=== PATIENT | female | born 1990 | race Two or more races ===

== ENCOUNTER 2024-02-23 09:24 | Emergency (ER) | payer MEDICAID, OTHER ==
[~2024-02-23] VITALS: Ht 162.6 cm; Wt 100.3 kg
[2024-02-23 10:13] LABS: Basophils # (auto) 0 10 ^3/uL (0-0.2); Basophils % (auto) 0.3 % (0.0-2.0); Eosinophils # (auto) 0.1 10 ^3/uL (0-0.8); Eosinophils % (auto) 0.6 % (0.0-7.0); Hematocrit 38.9 % (36.0-46.0); Hemoglobin 13.2 g/dL (12.2-16.2); Lymphocytes # (auto) 1.6 10 ^3/uL (0.4-5.4); Lymphocytes % (auto) 15.8 % (10.0-50.0); Mean Corpuscular Volume 91.2 fL (80.0-100.0); Monocytes % (auto) 9.7 % (0.0-12.0); Neutrophils # (auto) 7.5 10 ^3/uL (1.6-8.6); Neutrophils % (auto) 73.6 % (37.0-80.0); Nucleated Red Blood Cells % 0.1 %; Red Blood Cells 4.27 10^6/uL (4.0-5.20); Red Cell Distribution Width 12.6 % (11.8-14.3); White Blood Cell 10.2 10^3/uL (4.4-10.8)
[2024-02-23 10:32] LABS: Urine Bacteria FEW /hpf (None Seen); Urine Blood 3+ /uL (Negative); Urine Protein, UAD 1+ (Negative); Urine Specific Gravity 1.014 (1.001-1.035); Urine Urobilinogen Normal (Negative); Urine WBC 544 /hpf (0 - 5); Urine WBC Clumps PRESENT /hpf (None Seen)
[2024-02-23 10:34] LABS: Urine Clarity Cloudy (Clear); Urine Color Yellow (Yellow)
[2024-02-23 10:34] LABS: Chloride 108 mmol/L (98-107); Sodium 139 mmol/L (136-145)
[2024-02-23 10:35] LABS: Anion Gap 5 (5-15); Carbon Dioxide 26 mmol/L (20-30)
[2024-02-23 10:36] LABS: Calcium 9.2 mg/dL (8.5-10.1)
[2024-02-23 10:40] LABS: Glucose 89 mg/dL (74-106)
[2024-02-23 10:41] LABS: BUN/Creatinine Ratio 12.7 (10.0-20.0); Blood Urea Nitrogen 7 mg/dL (9-23)
[2024-02-23 10:59] VITALS: BP 100/61; PULSE 90; RESP 16; O2SAT 98
[2024-02-23] MEDS ORDERED: IBU600T PO (11:10)
[2024-02-23] MEDS ORDERED: NITR-87 PO (11:10)
== END 2024-02-23 11:16 | disposition home or self-care (01) ==
LOC: ER 09:24
DX: N39.0 Urinary tract infection, site not specified (principal); Z90.49 Acquired absence of other specified parts of digestive tract
CPT/HCPCS: 36415; 80048; 81001; 85025